=== PATIENT | female | born 1995 | race Caucasian/White ===

== ENCOUNTER 2017-03-21 16:51 | Emergency (ER) | payer SELFPAY ==
[2017-03-21 19:04] LABS: PLATELET COUNT 85 x10^3mcL (130-400)
[2017-03-21 19:49] LABS: ATYPICAL LYMPH 8 %; BAND NEUTROPHIL 4 % (0-10); BASOPHIL 0 % (0-2); MONOCYTE 8 % (0-7); SEGMENTED NEUTROPHILS 60 % (37-75)
[2017-03-21 19:51] LABS: rbc morphology (normal/abnorm) NORMAL (NORMAL)
[2017-03-21 20:43] LABS: CALCIUM 9.3 mg/dL (8.5-10.1); CARBON DIOXIDE 22.3 mmol/L (21-32); CHLORIDE SERUM 101 mmol/L (98-107); GFR1 > 60 mL/min; GLUCOSE SERUM 97 mg/dL (74-106); POTASSIUM SERUM 4.3 mmol/L (3.5-5.1); SODIUM SERUM 140 mmol/L (136-145)
[2017-03-21 20:47] LABS: ALBUMIN 3.7 g/dL (3.4-5.0); ALKALINE PHOSPHATASE 99 U/L (46-116); ALT/SGPT 30 U/L (14-59); AST/SGOT 39 U/L (15-37); BILIRUBIN TOTAL 0.3 mg/dL (0.20-1.00); LIPASE 127 IU/L (73-393); TOTAL PROTEIN, SERUM 8.2 g/dL (6.4-8.2)
[2017-03-21 21:21] VITALS: BP 11/57
== END 2017-03-21 21:22 | disposition home or self-care (01) ==
LOC: ED 16:51
PROVIDERS: Emergency Medicine
DX: K21.9 Gastro-esophageal reflux disease without esophagitis (principal); E86.0 Dehydration; F19.10 Other psychoactive substance abuse, uncomplicated
CPT/HCPCS: C9113; G0480; J2405; J2765; J7030

== ENCOUNTER 2017-10-05 09:17 | Emergency (ER) | payer BC ==
[~2017-10-05] VITALS: Ht 172.7 cm; Wt 68.0 kg
[2017-10-05 09:31] VITALS: Ht 172.7 cm; Wt 68.0 kg
[2017-10-05 10:45] VITALS: BP 121/75
== END 2017-10-05 11:17 | disposition home or self-care (01) ==
LOC: ED 09:17
DX: S20.212A Contusion of left front wall of thorax, initial encounter (principal); F17.210 Nicotine dependence, cigarettes, uncomplicated; W01.0XXA Fall on same level from slipping, tripping and stumbling without subsequent striking against object, initial encounter; Y93.89 Activity, other specified; Y92.89 Other specified places as the place of occurrence of the external cause; Y99.8 Other external cause status
CPT/HCPCS: J1885